=== PATIENT | female | born 1985 | race American Indian/Alaskan Native ===

== ENCOUNTER 2016-11-16 17:48 | Emergency (ER) | payer SELFPAY ==
[2016-11-16 18:54] VITALS: BP 127/66
[2016-11-16 19:40] LABS: Bilirubin,Urine NEG (Negative); Blood,Urine NEG (Negative); Ketones,Urine NEG (Negative); Leukocyte Esterase,Urine MOD (Negative); Mucus,Urine FEW /HPF; Nitrite,Urine NEG (Negative); Protein,Urine <15 mg/dL mg/dL (Negative); Urobilinogen,Urine < 2.0 mg/dL (<2.0)
[2016-11-16] MEDS ORDERED: ROCEPHIN IM ONE (20:15)
[2016-11-16] MEDS ORDERED: XYLOCAINE 1% MPF 5 mL INFILTRATI ONE (20:15)
[2016-11-16] MEDS ORDERED: ZITHROMAX PO ONE (20:15)
--- NOTE | 2016-11-16 20:22 | Emergency Department Report ---
Entered by KENNETH CAPONE, acting as scribe for CHRIS FELDMAN NP. ED Female HPI - General Chief complaint: Urogenital-Female Stated complaint: PELVIC PAIN/DISCHARGE X 1WK/IRRITATION Source: patient Mode of arrival: Ambulatory Limitations: No Limitations - History of Present Illness Initial comments: 31 y/o female with PMHx of anemia, presents to the ED c/o yellow vaginal discharge that began 1 week ago. Associated symptoms include vaginal irritation , and lower pelvic pain but denies fever, chills, nausea, vomiting, diarrhea, dysuria and hematuria. Pain is described as a 10/10 on a severity scale. No aggravating or alleviating factors. NKDA. PADILLA Complaint: vaginal discharge -: Gradual, week(s) (1 week) Radiation: non-radiating Severity: mild Severity scale (0 -10): 10 Improves with: none Worsens with: none Are you Now?: No Last Menstrual Period: 10/08/16 EDC: 07/15/17 Associated Symptoms: vaginal discharge (yellow dishcarge), other (lower pelvic pain, vaginal irritation, no diarrhea ). denies: nausea/vomiting, fever/chills , dysuria, hematuria - Related Data Sexually active: Yes : 1 Para: 1 A: 0 Previous Rx's Medication Instructions Recorded Last Taken Type Fluconazole [Diflucan TAB] 150 mg PO ONCE #1 tablet 11/16/16 Unknown Rx metroNIDAZOLE [Flagyl] 500 mg PO BID #20 tablet 11/16/16 Unknown Rx Allergies Allergy/AdvReac Type Severity Reaction Status Date / Time No Known Allergies Allergy Verified 11/16/16 18:49 ED Review of Systems Comment: All other systems reviewed and negative Constitutional: denies: chills, fever Gastrointestinal: denies: nausea, vomiting, diarrhea Genitourinary: discharge (yellow discharge), other (vaginal irritation and lower pelvic pain). denies: dysuria, hematuria ED Past Medical Hx - Past Medical History Additional medical history: ANEMIA - Surgical History Past Surgical History?: No - Social History Smoking Status: Current Every Day Smoker Substance Use Type: Alcohol, Marijuana - Medications Home Medications: Home Medications Medication Instructions Recorded Confirmed Last Taken Type Fluconazole [Diflucan TAB] 150 mg PO ONCE #1 tablet 11/16/16 Unknown Rx metroNIDAZOLE [Flagyl] 500 mg PO BID #20 tablet 11/16/16 Unknown Rx ED Physical Exam - General Limitations: No Limitations General appearance: alert, in no apparent distress - Head Head exam: Present: atraumatic, normocephalic, normal inspection - Eye Eye exam: Present: normal appearance, EOMI - ENT ENT exam: Present: normal exam - Neck Neck exam: Present: normal inspection, full ROM - Respiratory Respiratory exam: Present: normal lung sounds bilaterally. Absent: wheezes, rales, rhonchi - Cardiovascular Cardiovascular Exam: Present: regular rate, normal rhythm, normal heart sounds. Absent: rubs, gallop - GI/Abdominal GI/Abdominal exam: Present: soft, normal bowel sounds. Absent: tenderness, guarding, rebound - External exam: Present: normal external exam. Absent: erythema, lesions, ecchymosis, bleeding Speculum exam: Present: erythema, vaginal discharge, cervical discharge. Absent : vaginal bleeding, foreign body, laceration Bi-manual exam: Present: cervical motion tendernes. Absent: adnexal tenderness , adnexal mass, uterine enlargement, uterine tenderness - Expanded Exam Expanded Female exam: Present: vulvar erythema, vulvar tenderness. Absent: vaginal laceration, herpetic lesions, foreign body External exam: Present: normal Speculum exam: Present: cervical OS closed, vaginal discharge (yellow purulent ) . Absent: vaginal bleeding - Extremities Exam Extremities exam: Present: normal inspection, full ROM - Back Exam Back exam: Present: normal inspection, full ROM - Neurological Exam Neurological exam: Present: alert, oriented X3 - Psychiatric Psychiatric exam: Present: normal affect, normal mood - Skin Skin exam: Present: warm, dry, intact ED Course Vital Signs 11/16/16 18:52 Temperature 98.1 F Pulse Rate 64 Respiratory 17 Rate Blood Pressure 127/66 O2 Sat by Pulse 98 Oximetry ED Medical Decision Making - Lab Data wet prep pos for trich , gc/ch culture pending - Medical Decision Making pt is a 31 y/o aaf who presents for vagina discharge and pain x 1 week pt denies fever chills no n/v 3 low abdominal pain , exam: mons intact vulvovag: erythema no rash lesions or open sores, cervix: closed CMT noted will treat for STD exposure, rocephin , azithromycin, dc with flagy po x 7 days, pt will follow up with [facility] for annual exam as scheduled, pt advised to notify partner to seek tx. pt verbalized understanding and agreement with same. ED Disposition Clinical Impression: STD exposure, Trichomonal cervicitis Disposition: DC-01 TO HOME OR SELFCARE Is pt being admited?: No Does the pt Need Aspirin: No Condition: Good Prescriptions: Fluconazole [Diflucan TAB] 150 mg PO ONCE #1 tablet metroNIDAZOLE [Flagyl] 500 mg PO BID #20 tablet Forms: STI Treatment and Prevention, Work/School Release Form(ED) Time of Disposition: 20:22 This documentation as recorded by the ESTELITA drummond ELIZABETH,accurately reflects the service I personally performed and the decisions made by me, CHRIS FELDMAN NP.
== END 2016-11-16 20:55 | disposition home or self-care (01) ==
LOC: ED 17:48
DX: A59.09 Other urogenital trichomoniasis (principal); Z20.2 Contact with and (suspected) exposure to infections with a predominantly sexual mode of transmission; D64.9 Anemia, unspecified; F12.90 Cannabis use, unspecified, uncomplicated; F17.200 Nicotine dependence, unspecified, uncomplicated
CPT/HCPCS: 81001; 81025; 87210; 87591; 96372; 99284; J0696